=== PATIENT | male | born 1945 | race Caucasian/White ===

== ENCOUNTER → 2016-06-21 | Outpatient (CLI) | payer BC ==
[~2016-06-21] MED LIST: ASPI81TA28 PO; ATOR-26 PO; CHOL100010 PO; EZET10TA63 PO; FLUO0.05 TOP; HYOS1SUB SL; HYOS1TAB PO; IBUP-103 PO; METO50TA16 PO; SIME1CAP9 PO; TADA10TA PO; WHEAPOW13 PO
== END | disposition home or self-care (01) ==
LOC: C.LABPBG 08:25
PROVIDERS: ATTEND Urology
DX: C61 Malignant neoplasm of prostate (principal)

== ENCOUNTER → 2016-08-09 | Outpatient (CLI) | payer BC ==
[2016-08-09 12:29] LABS: BASO % 0.2 %; BASO ABS # 0.01 K/uL (0-0.2); COMPLETE YES; EOS % 2.5 %; HEMATOCRIT 38.9 % (42-52); IG% 0.2 %; LYMPH % 14.3 %; LYMPH ABS # 0.75 K/uL (1.2-3.4); MEAN CELL VOLUME 86.4 fL (80-100); MEAN CORPUSCULAR HEMOGLOBIN 29.8 pg (25-34); MEAN CORPUSCULAR HGB CONC 34.4 g/dl (32-36); MEAN PLATELET VOLUME 10.9 fL (7.4-10.4); MONO % 10.1 %; NEUT % 72.7 %; PLATELET COUNT 166 K/uL (130-400); WHITE BLOOD COUNT 5.23 K/uL (4.8-10.8)
[2016-08-09 13:02] LABS: ESTIMATED AVERAGE GLUCOSE 131 mg/dl; HA1C FLAG Normal (Normal)
[2016-08-09 13:21] LABS: ALT/SGPT 45 U/L (12-78); BLOOD UREA NITROGEN 15 mg/dl (7-18); BUN/CREATININE RATIO 15.7 (10-20); CALCIUM 8.9 mg/dl (8.5-10.1); CARBON DIOXIDE 27 mmol/L (21-32); CHLORIDE 108 mmol/L (98-107); CHOLESTEROL 122 mg/dl (0-200); CREATININE 0.98 mg/dl (0.60-1.40); GLUCOSE 113 mg/dl (70-99); POTASSIUM 3.9 mmol/L (3.5-5.1); SODIUM 143 mmol/L (136-145); TRIGLYCERIDES 87 mg/dl (0-150); URIC ACID 6.6 mg/dl (2.6-7.2); VERY LOW DENSITY LIPOPROT CALC 17 mg/dl
[2016-08-09 13:30] LABS: CHOLESTEROL/HDL RATIO 3.5; HDL CHOLESTEROL 35 mg/dl; LDL CHOLESTEROL CALCULATED 70 mg/dl
--- NOTE | 2016-08-13 10:49 | CODING QUERY MEDICAL NECESSITY ---
SUPPORTING DIAGNOSIS NEEDED Dr. Dexter, A supporting diagnosis is required for the test/procedure performed on this patient in order for us to be reimbursed by the patient's insurance. Please provide a supporting diagnosis for the following test/procedure listed below next to the test name along with your signature. *If there is no additional diagnosis for this patient that would support the following test/procedure please document that below next to the test/procedure. Test(s)/Procedure(s) that require a supporting diagnosis: * [id number] GLYCATED HEMOGLOBIN DIAGNOSIS: DATE OF SERVICE: 08/09/16 Provider Signature: Date: Thank you Gerson Goss [facility] Information Management Once completed, please kindly fax back to [phone] For questions please call [phone]
== END | disposition home or self-care (01) ==
LOC: C.LABPBG 08:04
PROVIDERS: ATTEND Internal Medicine
DX: E78.01 Familial hypercholesterolemia (principal); R73.9 Hyperglycemia, unspecified

== ENCOUNTER → 2016-09-01 | Day surgery (SDC) | payer BC ==
[2016-08-20 07:46] VITALS: Ht 162.6 cm; Wt 89.5 kg
[~2016-09-01] VITALS: Ht 162.6 cm; Wt 89.5 kg
[~2016-09-01] MED LIST changes: -IBUP-103 PO; +LIDOCAINE HCL 2% 2 ML VIAL (20MG/ML) ONE; +MIDAZOLAM HCL 1 MG/ML 2ML VIAL ONE; +ONDANSETRON INJ 2 MG/ML 2 ML VIAL ONE; +PROPOFOL IV EMULSION 10 MG/ML 20 ML VIAL IV ONE; -SIME1CAP9 PO; -TADA10TA PO; -WHEAPOW13 PO
[2016-09-01 09:05] VITALS: TEMP 37
--- NOTE | 2016-09-01 09:21 | Endo History and Physical ---
History & Physical Date of Service: Sep 01, 2016. Chief Complaint: screening Referring Physician: Dr. Dexter History of Present Illness 71 yo CM who presents for screening colonoscopy. Past Medical History Angioplasty/Stent, Arthritis, Male Genitourinary Prob., Gastrointestinal Disorder, Cancer, High Cholesterol, Heart Disease, Hypertension Past Surgical History Hx Cardiac Surgery: Yes (HEART CATH X2, STENT X1; CABG X3 VESSELS) Hx Internal Defibrillator: No Hx Pacemaker: No Hx Abdominal Surgery: No Hx of Implantable Prosthesis: No Hx Post-Op Nausea and Vomiting: No Hx Cancer Surgery: Yes (PROSTATECTOMY) Hx Thoracic Surgery: No Hx Orthopedic: No Hx Urinary Tract Surgery: No Family History None Social History Smoking Status: Former Smoker Hx Substance Use: No Hx Alcohol Use: Yes (OCCASIONAL) Allergies Coded Allergies: No Known Allergies (Unverified , 09/01/16) Current Medications Reported Home Medications Medications Dose Route/Sig Max Daily Dose Days Date Category Levsin (Hyoscyamine Sulfate) 0.125 Mg Tab 0.125 Mg PO Q8 PRN 08/20/16 Reported Vitamin D (Cholecalciferol) 1,000 Inter.unit Tab 1,000 Inter.unit PO QAM 09/16/15 Reported Lopressor (Metoprolol Tartrate) 50 Mg Tab 50 Mg PO BID 12/09/14 Reported Aspirin Ec (Aspirin) 81 Mg Tab 81 Mg PO QAM 12/09/14 Reported Hyomax-Sl (Hyoscyamine Sulfate) 0.125 Mg Sub 1 Tab SL Q8 PRN 08/29/14 Reported Lidex 0.05% (Fluocinonide) Cr 1 Appln TOP DAILY PRN 08/29/14 Reported Zetia (Ezetimibe) 10 Mg Tab 10 Mg PO HS 08/29/14 Reported Lipitor (Atorvastatin Calcium) 80 Mg Tab 80 Mg PO HS 08/29/14 Reported Vital Signs Weight (Kilograms): 89.55 Height (Feet): 5 Height (Inches): 4 Date Time Temp Pulse Resp B/P Pulse Ox O2 Delivery O2 Flow Rate FiO2 09/01/16 09:05 37 59 20 194/ 97 Room Air Physical Exam General Appearance: WD/WN, no apparent distress Respiratory/Chest: Auscultation: breath sounds normal Cardiovascular: Heart Auscultation: RRR Abdomen: Bowel Sounds: normal Inspection & Palpation: soft, non-distended, no tenderness, guarding & rebound Assessment and Plan Assessment: 71 yo CM who presents for screening colonoscopy. Plan: Proceed with colonoscopy.
--- NOTE | 2016-09-01 10:01 | Discharge Instructions ---
Endoscopy Patient Instructions Date / Procedure(s) Performed Sep 01, 2016. Colonoscopy Allergy Information Coded Allergies: No Known Allergies (Unverified , 09/01/16) Discharge Date / Findings Sep 01, 2016. Diverticulosis Internal hemorrhoids Medication Instructions OK to resume all medications today as prescribed Reported Home Medications Medications Dose Route/Sig Max Daily Dose Days Date Category Levsin (Hyoscyamine Sulfate) 0.125 Mg Tab 0.125 Mg PO Q8 PRN 08/20/16 Reported Vitamin D (Cholecalciferol) 1,000 Inter.unit Tab 1,000 Inter.unit PO QAM 09/16/15 Reported Lopressor (Metoprolol Tartrate) 50 Mg Tab 50 Mg PO BID 12/09/14 Reported Aspirin Ec (Aspirin) 81 Mg Tab 81 Mg PO QAM 12/09/14 Reported Hyomax-Sl (Hyoscyamine Sulfate) 0.125 Mg Sub 1 Tab SL Q8 PRN 08/29/14 Reported Lidex 0.05% (Fluocinonide) Cr 1 Appln TOP DAILY PRN 08/29/14 Reported Zetia (Ezetimibe) 10 Mg Tab 10 Mg PO HS 08/29/14 Reported Lipitor (Atorvastatin Calcium) 80 Mg Tab 80 Mg PO HS 08/29/14 Reported Provider Instructions Activity Restrictions - No exercising or heavy lifting for 24 hours. - Do not drink alcohol the day of the procedure. - Do not drive a car or operate machinery until the day after the procedure. - Do not make any important decisions or sign important papers in 24 hours after the procedure. Following Day: - Return to full activity which may include returning to work/school. Diet Start your diet with liquids and light foods (jello, soup, juice, toast). Then eat your usual diet if not nauseated. Treatment For Common After Affects For mild abdominal pain, bloating, or excessive gas: - Rest - Eat lightly - Lie on right side Follow-Up Information Follow-up with Dr. Dexter as scheduled Anesthesia Information What You Should Know You have had a procedure that required some medicine to reduce anxiety and discomfort. This treatment is called moderate sedation. After receiving the treatment, you may be sleepy, but you will be able to breathe on your own. The effects of the treatment may last for several hours. Follow these instructions along with Activity/Diet recommendations noted above: * Do NOT do anything where dizziness or clumsiness would be dangerous. * Rest quietly at home today, then you can be up and about tomorrow. * Have a responsible person stay with you the rest of today. * You may have had an I.V. today. If so, you may take the dressing off later today. Recommendations Call your doctor if: * Trouble breathing * Continuous vomiting for more than 24 hours * Temperature above 101 degrees * Severe abdominal pain or bloating * Pain not relieved by pain medicine ordered * There is increased drainage or redness from any incision * A large amount of rectal bleeding greater than 2-3 tablespoons. (If you had a polyp/s removed or have hemorrhoids, a small amount of blood - from the rectum is to be expected.) * You have any unanswered questions or concerns. IN THE EVENT OF A SERIOUS EMERGENCY, GO TO THE NEAREST EMERGENCY ROOM Your discharge instructions were prepared by provider Wesley Calhoun. Patient Instructions Signature Page Gamaliel Alarcon Patient (or Guardian) Signature/Date: I have read and understand the instructions given to me by my caregivers. Caregiver/RN/Doctor Signature/Date: The above-named patient and/or guardian has received patient instructions on this date. + Original Patient Signature Page (only) stays with chart. Please make copy for patient.
[2016-09-01 10:08] VITALS: BP 114/75; PULSE 53; O2SAT 92
--- NOTE | 2016-09-01 10:11 | GI REPORT ---
Procedure Date: 09/01/2016 9:07 AM THIS REPORT HAS BEEN AMENDED Addendum Number: 1 Addendum Date: 09/20/2016 8:46:19 AM No specimens were obtained during this procedure, and therefore, no pathology is pending. Consider repeat colonoscopy in 10 years based on patient's overall health status. Procedure: Colonoscopy Indications: Screening for colorectal malignant neoplasm Medicines: Monitored Anesthesia Care Complications: No immediate complications. Estimated Blood Loss: Estimated blood loss: none. Procedure: Pre-Anesthesia Assessment: - Prior to the procedure, a History and Physical was performed, and patient medications and allergies were reviewed. The patient's tolerance of previous anesthesia was also reviewed. The risks and benefits of the procedure and the sedation options and risks were discussed with the patient. All questions were answered, and informed consent was obtained. Prior Anticoagulants: The patient has taken aspirin, last dose was 1 day prior to procedure. ASA Grade Assessment: IV - A patient with severe systemic disease that is a constant threat to life. After reviewing the risks and benefits, the patient was deemed in satisfactory condition to undergo the procedure. After I obtained informed consent, the scope was passed under direct vision. Throughout the procedure, the patient's blood pressure, pulse, and oxygen saturations were monitored continuously. The scope was introduced through the anus and advanced to the terminal ileum. The colonoscopy was performed without difficulty. The patient tolerated the procedure well. The quality of the bowel preparation was good. The terminal ileum, ileocecal valve, appendiceal orifice, and rectum were photographed. Findings: Multiple small-mouthed diverticula were found in the sigmoid colon. Non-bleeding internal hemorrhoids were found during retroflexion. The hemorrhoids were small. Impression: - Diverticulosis in the sigmoid colon. - Non-bleeding internal hemorrhoids. - No specimens collected. Recommendation: - Resume previous diet. - Continue present medications. - Repeat colonoscopy for surveillance based on pathology results. - Return to primary care physician as previously scheduled. Wesley Calhoun DO 09/01/2016 10:10:37 AM This report has been signed electronically. Note Initiated On: 09/01/2016 9:07 AM I attest to the content of the Intraoperative Record and orders documented therein, exceptions below Wesley Juarez LjDO 09/20/2016 8:48:22 AM This report has been signed electronically.
--- NOTE | 2016-09-01 14:26 | Anesthesiology Progress Note ---
Anesthesia Post Op Note Date & Time Sep 01, 2016 at 14:25 Vital Signs Pain Intensity: 0 Vital Signs Past 12 Hours Date Time Temp Pulse Resp B/P Pulse Ox O2 Delivery O2 Flow Rate FiO2 09/01/16 10:08 53 18 114/75 92 Room Air 09/01/16 09:53 51 18 110/65 92 Room Air 09/01/16 09:38 55 18 102/60 95 Room Air 09/01/16 09:05 37 59 20 194/ 97 Room Air Notes Mental Status: alert / awake / arousable, participated in evaluation Pt Amnestic to Procedure: Yes Nausea / Vomiting: adequately controlled Pain: adequately controlled Airway Patency, RR, SpO2: stable & adequate BP & HR: stable & adequate Hydration State: stable & adequate Anesthetic Complications: no major complications apparent
== END | disposition home or self-care (01) ==
LOC: C.GI 08:28
PROVIDERS: ATTEND Internal Medicine
DX: Z12.11 Encounter for screening for malignant neoplasm of colon (principal); K57.30 Diverticulosis of large intestine without perforation or abscess without bleeding; K64.8 Other hemorrhoids; M19.90 Unspecified osteoarthritis, unspecified site; E78.00 Pure hypercholesterolemia, unspecified; I10 Essential (primary) hypertension; Z95.1 Presence of aortocoronary bypass graft; Z90.79 Acquired absence of other genital organ(s); Z98.61 Coronary angioplasty status; Z87.891 Personal history of nicotine dependence; Z79.82 Long term (current) use of aspirin

== ENCOUNTER → 2016-12-06 | Outpatient (CLI) | payer BC ==
[~2016-12-06] MED LIST changes: -LIDOCAINE HCL 2% 2 ML VIAL (20MG/ML) ONE; -MIDAZOLAM HCL 1 MG/ML 2ML VIAL ONE; -ONDANSETRON INJ 2 MG/ML 2 ML VIAL ONE; -PROPOFOL IV EMULSION 10 MG/ML 20 ML VIAL IV ONE
== END | disposition home or self-care (01) ==
LOC: C.LABPBG 07:42
PROVIDERS: ATTEND Urology
DX: C61 Malignant neoplasm of prostate (principal)

== ENCOUNTER → 2017-02-07 | Outpatient (CLI) | payer BC ==
[2017-02-07 12:33] LABS: BASO % 0.4 %; BASO ABS # 0.02 K/uL (0-0.2); COMPLETE YES; HEMATOCRIT 40.8 % (42-52); IG% 0.2 %; LYMPH % 16.3 %; LYMPH ABS # 0.91 K/uL (1.2-3.4); MEAN CELL VOLUME 88.9 fL (80-100); MEAN CORPUSCULAR HEMOGLOBIN 30.5 pg (25-34); MEAN CORPUSCULAR HGB CONC 34.3 g/dl (32-36); MEAN PLATELET VOLUME 11.1 fL (7.4-10.4); MONO % 8.6 %; NEUT % 71.5 %; PLATELET COUNT 147 K/uL (130-400); RED BLOOD COUNT 4.59 M/uL (4.7-6.1); WHITE BLOOD COUNT 5.59 K/uL (4.8-10.8)
[2017-02-07 12:53] LABS: URINE APPEARANCE CLEAR (CLEAR); URINE BILIRUBIN NEG (NEG); URINE COLOR YELLOW; URINE EPITHELIAL CELL AUTO 20-30 /lpf (0-5); URINE NITRITE NEG (NEG); URINE SPECIFIC GRAVITY 1.028 (1.000-1.030); UROBILINOGEN NEG (NEG)
[2017-02-07 12:54] LABS: ALT/SGPT 38 U/L (12-78); AST/SGOT 24 U/L (15-37); BLOOD UREA NITROGEN 13 mg/dl (7-18); BUN/CREATININE RATIO 14.2 (10-20); CALCIUM 8.9 mg/dl (8.5-10.1); CARBON DIOXIDE 24 mmol/L (21-32); CHLORIDE 110 mmol/L (98-107); CHOLESTEROL 125 mg/dl (0-200); GLUCOSE 115 mg/dl (70-99); POTASSIUM 3.6 mmol/L (3.5-5.1); SODIUM 143 mmol/L (136-145); TRIGLYCERIDES 97 mg/dl (0-150); URIC ACID 5.9 mg/dl (2.6-7.2); VERY LOW DENSITY LIPOPROT CALC 19 mg/dl
[2017-02-07 12:55] LABS: MANUAL MICROSCOPIC REQUIRED? NO; REVIEW REQ? YES
[2017-02-07 13:05] LABS: CHOLESTEROL/HDL RATIO 3.5; HDL CHOLESTEROL 36 mg/dl; LDL CHOLESTEROL CALCULATED 70 mg/dl
[2017-02-07 13:17] LABS: ESTIMATED AVERAGE GLUCOSE 126 mg/dl; HA1C FLAG Normal (Normal)
--- NOTE | 2017-02-28 09:41 | CODING QUERY MEDICAL NECESSITY ---
SUPPORTING DIAGNOSIS NEEDED A supporting diagnosis is required for the test/procedure performed on this patient in order for us to be reimbursed by the patient's insurance. Please provide a supporting diagnosis for the following test/procedure listed below next to the test name along with your signature. *If there is no additional diagnosis for this patient that would support the following test/procedure please document that below next to the test/procedure. Test(s)/Procedure(s) that require a supporting diagnosis: * HEMOGLOBIN A1C DIAGNOSIS: Provider Signature: Date: Thank you Ellen Muniz [employer] Information Management Once completed, please kindly fax back to [phone] For questions please call [phone]
== END | disposition home or self-care (01) ==
LOC: C.LABPBG 07:46
PROVIDERS: ATTEND Internal Medicine
DX: E78.01 Familial hypercholesterolemia (principal)

== ENCOUNTER → 2017-03-24 | Outpatient (CLI) | payer BC ==
[2016-03-23 13:24] VITALS: BP 134/70; PULSE 60
[2017-03-24 13:07] VITALS: BP 121/66; PULSE 56; TEMP 37; O2SAT 96
--- NOTE | 2017-03-24 14:02 | Radiation Oncology Follow-Up ---
Radiation Oncology Follow-Up Date of Visit Mar 24, 2017. Reason For Visit Annual follow-up Radiation Completion Date 08/19/15 Diagnosis (1) Prostate cancer Status: Resolved Onset Date: 08/08/2014 Location: left lobe of the prostate Histology Subtype: adenocarcinoma Stage: lll Permanent Comment: DIAGNOSIS: Prostate, adenocarcinoma, renzo 3 + 4, initial PSA 5.39, post RP PSA < 0.01, [id number] with positive bladder neck margin TREATMENT: Radical prostatectomy - 12/26/2014 Status post completion of radiation therapy 08/19/2015 received 7020 centigray. Last Edited By: Tri Quinteros on Aug 22, 2015 12:49 History of Present Illness Mr. Alarcon has a strong family history of prostate cancer. The patient's father at age 89 with a history of prostate cancer. His brother is alive and well at age 70 with a history of prostate cancer. He has a maternal cousin also with a history of prostate cancer. Patient was recently referred to Dr. Zee for evaluation of lower urinary tract symptoms and an elevated prostate-specific antigen. The patient's prostate -specific antigen on 08/06/2013 was 5.32. His prostate-specific antigen on 03/06/2014 was 4.32. Prostate-specific antigen on 06/18/2014 was 5.39. The patient was seen on 07/01/2014. His digital rectal exam revealed a prostate estimated at 40 g. No prostatic induration or nodularity was appreciated. However because of the rise in prostate-specific antigen and family history a prostate biopsy was recommended. On 08/08/2014 the patient underwent ultrasound-guided prostate biopsy. Estimated prostate volume was 45.6 g. A total of 20 biopsies were taken. This included 3 biopsies each from the left and right base, left and right mid gland, left and right apex. One biopsy was taken from the left and right anterior. 2 out of 3 biopsies from the left base were positive for an adenocarcinoma Milan grade 3+4. The tumor involved 5% of one core sample and 100% of the second core sample. The Milan pattern 4 represented 5% of the total tumor with no lymphovascular or perineural invasion identified. 3 biopsies from the right base were benign. This included seminal vesicle tissue which was benign. 2 of 3 biopsies from the left mid gland were positive for adenocarcinoma Milan grade 3+4. The Renzo pattern 4 comprises 5% of the total tumor. The tumor involved 10% of one core sample and 20% of the second core sample. There was no lymphovascular or perineural invasion identified. 3 biopsies from the right mid gland were benign. 3 of 3 biopsies left apex were positive for adenocarcinoma Renzo grade 3+4. The Renzo pattern 4 comprises 10% of the total tumor. The tumor involved 10% of all 3 cores. No lymphovascular or perineural invasion was identified. 3 biopsies from the right apex and one biopsy from the left and right anterior gland were all benign. Therefore total of 720 biopsies were positive all on the left side. Case: [id number]. Patient returned to discuss these findings with Dr. Zee on 08/15/2014. After a brief discussion of the treatment options it was arranged for us to see the patient in referral. He also met with Dr. Gamble on 08/21/2014 to discuss radical prostatectomy . It is for this reason the patient was seen in referral. The patient ultimately elected to undergo a radical prostatectomy which was completed by Dr. Gamble and December 2014. Pathology did reveal invasion of the left seminal vesicle and positive bladder neck margin. Since surgery, the patient's PSA has been undetectable however there has been concern for a biochemical failure based on his pathologic findings. In order to determine his overall risk, Dr. Gamble did order a DECIPHER genetic test and the patient 's score put him at a high risk of metastasis at 5 years. His results estimated a 24.1% risk of metastatic disease which is "4 times the average patient with adverse pathology." He was referred back to our office for adjuvant radiation therapy. Interim History He is been doing well over this past year. He denies any changes in his urinary status. He gave an AUA score of 1. He completed expanded prostate cancer index composite for clinical practice and gave a score of 2 of 12 and urinary incontinence symptoms. He gave a score of 0 of 12 and urinary irritation symptoms. He gave a score of 0 of 12 and bowel symptoms. He gave a score of 8 of 12 in sexual symptoms. In the questionnaire he marked that this was not a problem. He gave a score of 0 of 12 in hormonal vitality symptoms. His total was 10 of 60. His recheck PSAs have been excellent. He has been getting these every 6 months. They have all been less than 0.010. He had a colonoscopy on 09/01/2016. This was negative findings. Allergies Coded Allergies: No Known Allergies (Unverified , 09/01/16) Home Medications Scheduled Aspirin (Aspirin Ec), 81 MG PO QAM Atorvastatin (Lipitor), 80 MG PO HS Cholecalciferol (Vitamin D), 1,000 INTER.UNIT PO QAM Ezetimibe (Zetia), 10 MG PO HS Metoprolol Tartrate (Lopressor) (Lopressor), 50 MG PO BID Scheduled PRN Fluocinonide 0.05% (Lidex 0.05%), 1 APPLN TOP DAILY PRN for PRN Hyoscyamine Sulfate (Levsin), 0.125 MG PO Q8 PRN for DIFFICULTY SWALLOWING Review of Systems Gastrointestinal: Symptoms: WNL GI Comments: No fiber supplements; Oral: Symptoms: No Problems Respiratory: Symptoms: WNL Urinary: Symptoms: WNL, Frequency Comments: 1 void/night;Doesn't feel like he always empties bladder; Skin: Symptoms: No Problems Physical Exam Vital Signs Date Time Temp Pulse Resp B/P (MAP) Pulse Ox O2 Delivery O2 Flow Rate FiO2 03/24/17 13:07 37.0 56 32 121/66 96 Pain: Patient Pain Scale: 0 - 10 Initial Pain Intensity: 0.0 Fatigue: None General Appearance: no apparent distress Eyes: normal inspection, EOMI ENT: normal ENT inspection, hearing grossly normal Respiratory/Chest: lungs clear, no respiratory distress, no accessory muscle use Cardiovascular: regular rate, rhythm, no gallop, no murmur Abdomen: non tender, soft, no organomegaly Anal / Rectum: Normal sphincter tone. No rectal masses and no rectal bleeding. Prostate bed is flat. Neurologic/Psychiatric: no motor/sensory deficits, alert, normal mood/affect Skin: warm/dry Laboratory Studies Test 02/07/17 07:50 02/07/17 08:01 White Blood Count 5.59 K/uL (4.8-10.8) Red Blood Count 4.59 M/uL (4.7-6.1) Hemoglobin 14.0 g/dL (14.0-18.0) Hematocrit 40.8 % (42-52) Mean Corpuscular Volume 88.9 fL (80-100) Mean Corpuscular Hemoglobin 30.5 pg (25-34) Mean Corpuscular Hemoglobin Concent 34.3 g/dl (32-36) Platelet Count 147 K/uL (130-400) Mean Platelet Volume 11.1 fL (7.4-10.4) Neutrophils (%) (Auto) 71.5 % Lymphocytes (%) (Auto) 16.3 % Monocytes (%) (Auto) 8.6 % Eosinophils (%) (Auto) 3.0 % Basophils (%) (Auto) 0.4 % Neutrophils # (Auto) 4.00 K/uL (1.4-6.5) Lymphocytes # (Auto) 0.91 K/uL (1.2-3.4) Monocytes # (Auto) 0.48 K/uL (0.11-0.59) Eosinophils # (Auto) 0.17 K/uL (0-0.5) Basophils # (Auto) 0.02 K/uL (0-0.2) RDW Standard Deviation 40.9 fL (36.4-46.3) RDW Coefficient of Variation 12.8 % (11.5-14.5) Immature Granulocyte % (Auto) 0.2 % Immature Granulocyte # (Auto) 0.01 K/uL (0.00-0.02) Sodium Level 143 mmol/L (136-145) Potassium Level 3.6 mmol/L (3.5-5.1) Chloride Level 110 mmol/L (98-107) Carbon Dioxide Level 24 mmol/L (21-32) Anion Gap 9.0 mmol/L (3-11) Blood Urea Nitrogen 13 mg/dl (7-18) Creatinine 0.90 mg/dl (0.60-1.40) Estimated GFR () 100.6 Estimated GFR (Non- 86.8 BUN/Creatinine Ratio 14.2 (10-20) Random Glucose 115 mg/dl (70-99) Estimated Average Glucose 126 mg/dl Hemoglobin A1c 6.0 % (4.5-5.6) Uric Acid 5.9 mg/dl (2.6-7.2) Calcium Level 8.9 mg/dl (8.5-10.1) Aspartate Amino Transferase (AST) 24 U/L (15-37) Alanine Aminotransferase (ALT) 38 U/L (12-78) Total Creatine Kinase 123 U/L (39-308) Triglycerides Level 97 mg/dl (0-150) Cholesterol Level 125 mg/dl (0-200) HDL Cholesterol 36 mg/dl LDL Cholesterol, Calculated 70 mg/dl VLDL Cholesterol, Calculated 19 mg/dl Cholesterol/HDL Ratio 3.5 Thyroid Stimulating Hormone (TSH) 1.540 uIu/ml (0.300-4.500) Urine Color YELLOW Urine Appearance CLEAR (CLEAR) Urine pH 5.0 (4.5-7.5) Urine Specific Hope 1.028 (1.000-1.030) Urine Protein NEG (NEG) Urine Glucose (UA) NEG (NEG) Urine Ketones NEG (NEG) Urine Occult Blood 1+ (NEG) Urine Nitrite NEG (NEG) Urine Bilirubin NEG (NEG) Urine Urobilinogen NEG (NEG) Urine Leukocyte Esterase NEG (NEG) Urine WBC (Auto) 1-5 /hpf (0-5) Urine RBC (Auto) 0-4 /hpf (0-4) Urine Hyaline Casts (Auto) 1-5 /lpf (0-5) Urine Epithelial Cells (Auto) 20-30 /lpf (0-5) Urine Bacteria (Auto) NEG (NEG) Urine Crystals AMORPHOUS SEDIMENT (NONE Assessment & Plan Plan: Continue regular follow-up with Dr. Gamble and Dr. Dexter. He is getting PSAs every 6 months. We asked him to return to our office in 1 year. He may call if he has any questions or concerns in the interim. Assessment & Plan (Attending) ADDENDUM: I agree with note created by Tri Quinteros PA-C. I reviewed the patient's chart and information with her. I have examined and evaluated the patient. I reviewed relevant clinical information and answered the patient's and /or family's questions. RUG HOOKER Total Time In Follow-Up I spent 20 minutes speaking to the patient and performing examination. I spent 15 minutes reviewing information and completeness note. AK Total Time (Attending) In Follow-Up I spent 15 minutes examining and counseling the patient. RUG HOOKER Copy To Nelson Dexter M.D.; Nando Gamble M.D.
== END | disposition home or self-care (01) ==
LOC: C.ONC 12:48
PROVIDERS: ATTEND Physician Assistant Medical
DX: Z08 Encounter for follow-up examination after completed treatment for malignant neoplasm (principal); Z92.3 Personal history of irradiation; Z85.46 Personal history of malignant neoplasm of prostate

== ENCOUNTER → 2017-04-18 | Outpatient (CLI) | payer BC ==
[~2017-04-18] MED LIST changes: -HYOS1SUB SL
== END | disposition home or self-care (01) ==
LOC: C.PATHSPEC 16:19
PROVIDERS: ATTEND Dermatology
DX: L82.0 Inflamed seborrheic keratosis (principal)

== ENCOUNTER → 2017-06-13 | Outpatient (CLI) | payer BC | END | disposition home or self-care (01) | LOC: C.LABPBG 07:53 | PROVIDERS: ATTEND Urology | DX: C61 Malignant neoplasm of prostate (principal) ==

== ENCOUNTER → 2017-08-23 | Outpatient (CLI) | payer BC ==
[2017-08-23 13:18] LABS: BASO % 0.5 %; BASO ABS # 0.03 K/uL (0-0.2); EOS % 3.5 %; EOS ABS # 0.22 K/uL (0-0.5); HEMATOCRIT 41.6 % (42-52); HEMOGLOBIN 14.3 g/dL (14.0-18.0); IG# 0.03 K/uL (0.00-0.02); LYMPH % 17.4 %; MEAN CELL VOLUME 89.3 fL (80-100); MEAN CORPUSCULAR HEMOGLOBIN 30.7 pg (25-34); MEAN CORPUSCULAR HGB CONC 34.4 g/dl (32-36); MEAN PLATELET VOLUME 11.2 fL (7.4-10.4); MONO % 9.4 %; MONO ABS # 0.59 K/uL (0.11-0.59); NEUT % 68.7 %; NEUT ABS # 4.34 K/uL (1.4-6.5); PLATELET COUNT 146 K/uL (130-400); RED CELL DISTRIBUTION WIDTH CV 13.2 % (11.5-14.5); RED CELL DISTRIBUTION WIDTH SD 42.4 fL (36.4-46.3); WHITE BLOOD COUNT 6.31 K/uL (4.8-10.8)
[2017-08-23 14:36] LABS: ALT/SGPT 47 U/L (12-78); AST/SGOT 26 U/L (15-37); BLOOD UREA NITROGEN 17 mg/dl (7-18); CALCIUM 8.8 mg/dl (8.5-10.1); CARBON DIOXIDE 23 mmol/L (21-32); CREATININE 1.05 mg/dl (0.60-1.40); GLUCOSE 120 mg/dl (70-99); POTASSIUM 3.6 mmol/L (3.5-5.1); SODIUM 140 mmol/L (136-145); URIC ACID 6.3 mg/dl (2.6-7.2)
[2017-08-23 14:53] LABS: CHOLESTEROL 136 mg/dl (0-200); LDL CHOLESTEROL CALCULATED 70 mg/dl
[2017-08-24 05:27] LABS: HEMOGLOBIN A1C 6.1 % (4.5-5.6)
== END | disposition home or self-care (01) ==
LOC: C.LABPBG 07:26
PROVIDERS: ATTEND Internal Medicine
DX: C61 Malignant neoplasm of prostate (principal)

== ENCOUNTER 2017-12-30 03:20 | Emergency (ER) | payer BC ==
[~2017-12-30] VITALS: Ht 162.6 cm; Wt 89.6 kg
[2017-12-30 03:24] VITALS: TEMP 36.9; Ht 162.6 cm; Wt 89.6 kg
--- NOTE | 2017-12-30 03:40 | EMERGENCY ROOM VISIT NOTE ---
History Report prepared by Ivy: Fabrizio Barnes Under the Supervision of: Ifrah AndersonO. First contact with patient: 03:29 Chief Complaint: BACK PAIN Stated Complaint: PAIN IN BACK TO ABDOMEN History of Present Illness The patient is a 72 year old male who presents to the Emergency Room with complaints of constant, left lower back pain beginning three days ago. The patient states his symptoms have been dull, and he is able to do things throughout the day. He reports his symptoms worsen when he tries to sleep, and he was not able to sleep this evening. The patient notes his symptoms spread from his left lower back to his left lower abdomen this evening. He states he was nauseous but did not vomit. The patient reports he tried Advil and Tylenol, but it did not work. He notes a history of diverticulosis, HTN, CABGx3, and prostate cancer. The patient denies vomiting, fevers, chills, changes in bowel movements, changes in urine, urinary symptoms, right abdominal pain, upper back pain, numbness, tingling, and leg pain. He also denies a history of: kidney stones, back pain, herniated disks, kidney trouble, bowel problems, diverticulitis, and sciatica. Source of History: patient Onset: three days ago Position: back (left, lower) Quality: dull Timing: constant Associated Symptoms: + nausea, + abdominal pain (positve left sided, negative right sided), No fevers, No chills, No vomiting, No back pain (upper), No urinary symptoms, No numbness (and tingling) Review of Systems See HPI for pertinent positives & negatives. A total of 10 systems reviewed and were otherwise negative. Past Medical & Surgical Medical Problems: (1) Diverticulosis (2) HTN (hypertension) (3) Prostate cancer Surgical Problems: (1) S/P CABG x 3 Family History Patient reports no known family medical history. Social History Smoking Status: Former Smoker Marital Status: Housing Status: lives with significant other Current/Historical Medications Scheduled Aspirin (Aspirin Ec), 81 MG PO QAM Atorvastatin (Lipitor), 80 MG PO HS Cholecalciferol (Vitamin D), 1,000 INTER.UNIT PO QAM Ezetimibe (Zetia), 10 MG PO HS Indapamide (Lozol), 1.25 MG PO DAILY Metoprolol Tartrate (Lopressor) (Lopressor), 50 MG PO BID Scheduled PRN Fluocinonide 0.05% (Lidex 0.05%), 1 APPLN TOP DAILY PRN for PRN Hyoscyamine Sulfate (Levsin), 0.125 MG PO Q8 PRN for DIFFICULTY SWALLOWING Allergies Coded Allergies: No Known Allergies (Unverified , 09/01/16) Physical Exam Vital Signs Date Time Temp Pulse Resp B/P (MAP) Pulse Ox O2 Delivery O2 Flow Rate FiO2 12/30/17 05:55 56 18 169/74 98 Room Air 12/30/17 05:06 52 18 154/68 98 Room Air 12/30/17 03:24 36.9 66 16 205/90 95 Room Air Physical Exam GENERAL: alert, well appearing, well nourished, no distress, non-toxic EYE EXAM: normal conjunctiva, PERRL and EOM's grossly intact OROPHARYNX: no exudate, no erythema, lips, buccal mucosa, and tongue normal and mucous membranes are moist NECK: supple, no nuchal rigidity, no adenopathy, non-tender LUNGS: Clear to auscultation. Normal chest wall mechanics, no w/r/r HEART: no murmurs, S1 normal and S2 normal ABDOMEN: abdomen soft, non-tender, normo-active bowel sounds, no masses, no rebound or guarding. No pulsatile mass. BACK: Back is symmetrical on inspection and there is no deformity, no midline tenderness, no CVA tenderness. No reproducible back or flank tenderness. SKIN: no rashes and no bruising UPPER EXTREMITIES: upper extremities are grossly normal. FROM, nml pulses. LOWER EXTREMITIES: No pitting edema. FROM, nnl pulses. NEURO EXAM: Normal sensorium, cranial nerves II-XII grossly intact, normal speech, no gross weakness of arms, no gross weakness of legs. Medical Decision & Procedures ER Provider Diagnostic Interpretation: Radiology results have been interpreted by the [facility] radiologist and reviewed by me. CT ABDOMEN & PELVIS WITHOUT CONTRAST: There is a previous CT pelvis from May 2015. No prior report. Tiny nonobstructive left renal calcification image 175/3. No ureteral calculus. No hydronephrosis. The appendix is ectatic measuring up to 8-9mm in caliber. No adjacent inflammatory changes. Correlate for appendicitis though appendix may be within normal limits. Although ectatic, caliber of appendix does not appear increased compared to the previous CT pelvis. Cholelithiasis. Diverticulosis. No diverticulitis. No evidence for acute pancreatitis. Additional nonemergent/incidental findings. See final report. Radiologist: Nando Black MD Study ready at 0405 and initial results transmitted at 0441. Laboratory Results 12/30/17 03:48 Red Blood Count 4.80, Mean Corpuscular Volume 88.3, Mean Corpuscular Hemoglobin 31.0, Mean Corpuscular Hemoglobin Concent 35.1, Mean Platelet Volume 10.3, Neutrophils (%) (Auto) 78.6, Lymphocytes (%) (Auto) 12.8, Monocytes (%) (Auto) 6.6, Eosinophils (%) (Auto) 1.2, Basophils (%) (Auto) 0.4, Neutrophils # (Auto) 6.31, Lymphocytes # (Auto) 1.03, Monocytes # (Auto) 0.53, Eosinophils # (Auto) 0.10, Basophils # (Auto) 0.03 12/30/17 03:48 Test 12/30/17 03:44 12/30/17 03:48 Urine Color YELLOW Urine Appearance CLEAR (CLEAR) Urine pH 5.0 (4.5-7.5) Urine Specific Coats 1.029 (1.000-1.030) Urine Protein NEG (NEG) Urine Glucose (UA) NEG (NEG) Urine Ketones NEG (NEG) Urine Occult Blood 1+ (NEG) Urine Nitrite NEG (NEG) Urine Bilirubin NEG (NEG) Urine Urobilinogen NEG (NEG) Urine Leukocyte Esterase NEG (NEG) Urine WBC (Auto) 1-5 /hpf (0-5) Urine RBC (Auto) 0-4 /hpf (0-4) Urine Hyaline Casts (Auto) 1-5 /lpf (0-5) Urine Epithelial Cells (Auto) 5-10 /lpf (0-5) Urine Bacteria (Auto) NEG (NEG) White Blood Count 8.03 K/uL (4.8-10.8) Red Blood Count 4.80 M/uL (4.7-6.1) Hemoglobin 14.9 g/dL (14.0-18.0) Hematocrit 42.4 % (42-52) Mean Corpuscular Volume 88.3 fL (80-100) Mean Corpuscular Hemoglobin 31.0 pg (25-34) Mean Corpuscular Hemoglobin Concent 35.1 g/dl (32-36) Platelet Count 175 K/uL (130-400) Mean Platelet Volume 10.3 fL (7.4-10.4) Neutrophils (%) (Auto) 78.6 % Lymphocytes (%) (Auto) 12.8 % Monocytes (%) (Auto) 6.6 % Eosinophils (%) (Auto) 1.2 % Basophils (%) (Auto) 0.4 % Neutrophils # (Auto) 6.31 K/uL (1.4-6.5) Lymphocytes # (Auto) 1.03 K/uL (1.2-3.4) Monocytes # (Auto) 0.53 K/uL (0.11-0.59) Eosinophils # (Auto) 0.10 K/uL (0-0.5) Basophils # (Auto) 0.03 K/uL (0-0.2) RDW Standard Deviation 40.2 fL (36.4-46.3) RDW Coefficient of Variation 12.5 % (11.5-14.5) Immature Granulocyte % (Auto) 0.4 % Immature Granulocyte # (Auto) 0.03 K/uL (0.00-0.02) Prothrombin Time 10.5 SECONDS (9.0-12.0) Prothromb Time International Ratio 1.0 (0.9-1.1) Anion Gap 4.0 mmol/L (3-11) Est Creatinine Clear Calc Drug Dose 64.9 ml/min Estimated GFR () 81.1 Estimated GFR (Non- 70.0 BUN/Creatinine Ratio 18.9 (10-20) Calcium Level 8.9 mg/dl (8.5-10.1) Total Bilirubin 0.9 mg/dl (0.2-1) Aspartate Amino Transf (AST/SGOT) 21 U/L (15-37) Alanine Aminotransferase (ALT/SGPT) 38 U/L (12-78) Alkaline Phosphatase 58 U/L (45-117) Total Protein 7.8 gm/dl (6.4-8.2) Albumin 4.1 gm/dl (3.4-5.0) Globulin 3.7 gm/dl (2.5-4.0) Albumin/Globulin Ratio 1.1 (0.9-2) Laboratory results per my review. Medications Administered Medications (Trade) Dose Ordered Sig/Lucho Route Start Time Stop Time Status Last Admin Dose Admin Ketorolac Tromethamine (Toradol Inj) 15 mg NOW STAT IV 12/30/17 05:20 12/30/17 05:21 DC 12/30/17 05:25 15 MG Tramadol HCl (Ultram Tab) 50 mg NOW STAT PO 12/30/17 05:20 12/30/17 05:21 DC 12/30/17 05:25 50 MG Sodium Chloride 500 ml @ 999 mls/hr Q31M STAT IV 12/30/17 05:20 12/30/17 05:50 DC 12/30/17 05:25 999 MLS/HR ECG Per My Interpretation Indication: back/shoulder pain Rate (beats per minute): 66 Rhythm: sinus rhythm Findings: Q waves (Lead III and AVF), other (Normal axis. Normal intervals. No other ischemic changes.) ED Course 0331: The patient was evaluated in room A10. A complete history and physical exam was performed. 0511: I reevaluated the patient. He is still in pain. He will receive medication for his discomfort. 0520: Ordered Sodium Chloride 500 ml @ 999 mls/hr IV, Tramadol HCl 50mg PO, Toradol 15mg IV 0551: Upon reevaluation, the patient is feeling better. I discussed the findings and the treatment plan with the patient. He verbalizes agreement and understanding. The patient was discharged home. Medical Decision Differential diagnosis: Etiologies such as renal colic, appendicitis, diverticulitis, mesenteric ischemia, aortic pathology, infections, inflammatory bowel disease, PUD, biliary pathology, UTI, as well as others were entertained. Discussed with pt ddx including renal colic as story/presentation very consistent with renal colic and hematuria noted. No ureterolithiasis seen on CT but nephrolithiasis noted. No other acute GI//vascular etiology noted. No evidence of bacteremia/sepsis. VS stable throughout. Discussed with him f/ u with PCP, recheck of his urine for hematuria and possible f/u with urology if it persisted, sx to watch/return for, he verbalized understanding and was agreeable with plan. Medication Reconcilliation Current Medication List: was personally reviewed by me Blood Pressure Screening Patient's blood pressure: Elevated blood pressure Blood pressure disposition: Elevated BP felt to be situational Impression Primary Impression: Hematuria Additional Impression: Flank pain Scribe Attestation The scribe's documentation has been prepared under my direction and personally reviewed by me in its entirety. I confirm that the note above accurately reflects all work, treatment, procedures, and medical decision making performed by me. Departure Information Dispostion Home / Self-Care Referrals Nelson Dexter M.D. (PCP) Forms HOME CARE DOCUMENTATION FORM, IMPORTANT VISIT INFORMATION Patient Instructions ED Flank Pain Uncertain Cause, ED Hematuria, [facility] Additional Instructions Please drink plenty water to stay well-hydrated. Please call follow-up with your family doctor the beginning of next week. Please have them recheck your urine for blood. Please monitor your pain for any changes. If you have worsening pain, noticed a change in your urine, develop fevers or chills, pain begins to move or spread, he develop weakness or unable to walk, dizziness, nausea or vomiting, you have any other new concerns, please return the emergency room. Problem Qualifiers Primary Impression: Hematuria Hematuria type: unspecified type Qualified Codes: R31.9 - Hematuria, unspecified
[2017-12-30 04:01] LABS: BASO % 0.4 %; BASO ABS # 0.03 K/uL (0-0.2); EOS % 1.2 %; HEMATOCRIT 42.4 % (42-52); HEMOGLOBIN 14.9 g/dL (14.0-18.0); IG# 0.03 K/uL (0.00-0.02); LYMPH % 12.8 %; LYMPH ABS # 1.03 K/uL (1.2-3.4); MEAN CELL VOLUME 88.3 fL (80-100); MEAN CORPUSCULAR HGB CONC 35.1 g/dl (32-36); MEAN PLATELET VOLUME 10.3 fL (7.4-10.4); MONO % 6.6 %; MONO ABS # 0.53 K/uL (0.11-0.59); NEUT % 78.6 %; NEUT ABS # 6.31 K/uL (1.4-6.5); PLATELET COUNT 175 K/uL (130-400); RED CELL DISTRIBUTION WIDTH CV 12.5 % (11.5-14.5); RED CELL DISTRIBUTION WIDTH SD 40.2 fL (36.4-46.3); WHITE BLOOD COUNT 8.03 K/uL (4.8-10.8)
[2017-12-30 04:29] LABS: ALBUMIN 4.1 gm/dl (3.4-5.0); CALCIUM 8.9 mg/dl (8.5-10.1); CREATININE 1.07 mg/dl (0.60-1.40); POTASSIUM 3.7 mmol/L (3.5-5.1); TOTAL PROTEIN 7.8 gm/dl (6.4-8.2)
[2017-12-30] MEDS ORDERED: INDA1TAB3 PO (04:44)
[2017-12-30] MEDS ORDERED: KETOROLAC TROMETHAMINE 30 MG/ML VIAL IV STA (05:20)
[2017-12-30] MEDS ORDERED: SODIUM CHLORIDE 0.9% 500ML 500 ML IV STA (05:20)
[2017-12-30] MEDS ORDERED: TRAMADOL HCL 50 MG TAB PO STA (05:20)
[2017-12-30 05:55] VITALS: BP 169/74; PULSE 56; O2SAT 98
--- NOTE | 2017-12-30 07:25 | DIAGNOSTIC IMAGING REPORT ---
ABDOMEN AND PELVIS CT WITHOUT CONTRAST CT DOSE: 1297.21 mGy.cm HISTORY: left flank pain TECHNIQUE: Multiaxial CT images of the abdomen and pelvis were performed without the use of intravenous and oral contrast according to the standard department stone protocol. A dose lowering technique was utilized adhering to the principles of ALARA. COMPARISON STUDY: Pelvis CT 06/16/2015. FINDINGS: Linear densities at the left lung base favor subsegmental atelectasis or scarring. The right lung is clear. No pneumoperitoneum. No pneumatosis. No fractures within the visualized osseous structures. Poststernotomy changes. Multiple small gallstones. No gallbladder wall thickening. The unenhanced liver, spleen, adrenal glands, and pancreas are unremarkable. No retroperitoneal lymphadenopathy. Calcified plaque within the normal caliber abdominal aorta. Tiny punctate stone within the upper pole the left kidney on image 175. No ureteral calculi. No hydronephrosis. No right renal calculi. Small fat-containing left inguinal hernia. Bladder completely decompressed which results in suboptimal evaluation. Colonic diverticulosis. Suboptimal evaluation for bowel pathology due to the lack of intravenous and oral contrast. However, there is no definite bowel wall thickening or obstruction. Fat-containing right lateral lower abdominal wall intramuscular lesion. This favors a lipoma. This remains unchanged. The appendix measures up to 8 mm in diameter. However, this remains unchanged compared to the prior CT examination. There is no periappendiceal fat stranding to suggest acute appendicitis at this time. IMPRESSION: 1. Left-sided nephrolithiasis. No ureteral stones. No hydronephrosis. 2. Stable prominence of the appendix. No periappendiceal fat stranding to suggest acute appendicitis. 3. Colonic diverticulosis. 4. No definite bowel wall thickening or obstruction. 5. Cholelithiasis. 6. Small fat-containing left inguinal hernia. Electronically signed by: Arthur Aldridge M.D. 12/30/2017 7:24 AM Dictated Date/Time: 12/30/2017 7:10 AM
== END 2017-12-30 06:00 | disposition home or self-care (01) ==
LOC: C.EDB 03:21 → C.EDA 06:00
DX: R31.9 Hematuria, unspecified (principal); I10 Essential (primary) hypertension; Z95.1 Presence of aortocoronary bypass graft; Z85.46 Personal history of malignant neoplasm of prostate; Z87.01 Personal history of pneumonia (recurrent); Z79.82 Long term (current) use of aspirin; Z79.899 Other long term (current) drug therapy

== ENCOUNTER → 2018-01-03 | Outpatient (CLI) | payer BC ==
[~2018-01-03] MED LIST changes: +INDA1TAB3 PO
--- NOTE | 2018-01-03 16:44 | DIAGNOSTIC IMAGING REPORT ---
L RIBS UNILATERAL WITH PA CHEST CLINICAL HISTORY: LEFT SIDE PAIN pain COMPARISON STUDY: No previous studies for comparison. FINDINGS: Negative left ribs. No acute process. Negative chest. Prior median sternotomy. IMPRESSION: Negative left ribs. Negative chest. The above report was generated using voice recognition software. It may contain grammatical, syntax or spelling errors. Electronically signed by: Eliseo Read M.D. 01/03/2018 4:42 PM Dictated Date/Time: 01/03/2018 4:39 PM
== END | disposition home or self-care (01) ==
LOC: C.RAD1850 16:09
PROVIDERS: ATTEND Internal Medicine
DX: R07.89 Other chest pain (principal)